=== PATIENT | male | born 1970 | race Caucasian/White ===

== ENCOUNTER 2017-04-03 02:44 | Emergency (ER) | payer OTHER ==
[~2017-04-03 02:44] MED LIST: AUGMENTIN PO; AUGMENTIN875 M1 PO; BACITRACIN30 GM TOP; BC PO; KEFLEX PO; MUCINEX FAST-M1 EAC2 PO; PERCOCET5/325 PO; TYLOX 5/500 CAP1 CAP PO
== END 2017-04-03 04:16 | disposition home or self-care (01) ==
LOC: CED 02:44
DX: L23.7 Allergic contact dermatitis due to plants, except food (principal); Z98.890 Other specified postprocedural states; F17.210 Nicotine dependence, cigarettes, uncomplicated
CPT/HCPCS: 99282